=== PATIENT | male | born 1975 | race Caucasian/White ===

== ENCOUNTER → 2017-05-21 10:29 | Emergency (ER) | payer MEDICARE, MEDICAID | END | disposition home or self-care (01) | LOC: D.ER 10:29 | DX: J20.9 Acute bronchitis, unspecified (principal); R07.81 Pleurodynia; R50.9 Fever, unspecified; J11.1 Influenza due to unidentified influenza virus with other respiratory manifestations; R09.89 Other specified symptoms and signs involving the circulatory and respiratory systems; R51 Headache ==

== ENCOUNTER 2017-11-11 10:22 | Emergency (ER) | payer MEDICARE ==
[~2017-11-11] VITALS: Ht 175.3 cm; Wt 90.9 kg
[2017-11-11 10:55] VITALS: Ht 175.3 cm; Wt 90.9 kg
[2017-11-11] MEDS ORDERED: MUPIROCIN22 GM TOPICAL (14:46)
[2017-11-11] MEDS ORDERED: BACTRIM DS TABL1 TAB PO (14:46)
[2017-11-11 15:15] VITALS: BP 128/73
== END 2017-11-11 15:16 | disposition home or self-care (01) ==
LOC: D.ER 10:22
DX: L02.811 Cutaneous abscess of head [any part, except face] (principal)

== ENCOUNTER 2019-02-14 12:16 | Emergency (ER) | payer MEDICARE ==
[~2019-02-14] VITALS: Ht 175.3 cm; Wt 86.4 kg
[~2019-02-14 12:16] MED LIST: BACTRIM DS TABL1 TAB PO; MUPIROCIN22 GM TOPICAL
[2019-02-14 12:30] VITALS: BP 150/86; Ht 175.3 cm; Wt 86.4 kg
== END 2019-02-14 15:16 | disposition left against medical advice (07) ==
LOC: D.ER 12:16
DX: K08.89 Other specified disorders of teeth and supporting structures (principal)